=== PATIENT | female | born 1975 | race African-American/Black ===

== ENCOUNTER 2020-10-21 18:51 | Emergency (ER) | payer OTHER ==
[~2020-10-21] VITALS: Ht 157.5 cm; Wt 102.0 kg
[2020-10-21] MEDS ORDERED: ULTRAM50 MG PO (21:02)
[2020-10-21] MEDS ORDERED: FLEXERIL5 M1 PO (21:02)
[2020-10-21 21:51] VITALS: BP 134/70
== END 2020-10-21 21:51 | disposition home or self-care (01) | DRG 563 ==
LOC: ED 18:51
DX: S39.012A Strain of muscle, fascia and tendon of lower back, initial encounter (principal); S93.402A Sprain of unspecified ligament of left ankle, initial encounter; K21.9 Gastro-esophageal reflux disease without esophagitis; V49.40XA Driver injured in collision with unspecified motor vehicles in traffic accident, initial encounter; Z86.718 Personal history of other venous thrombosis and embolism